=== PATIENT | male | born 1975 | race Caucasian/White ===

== ENCOUNTER 2019-08-02 10:08 | Emergency (ER) | payer BC ==
[2019-08-02 10:38] VITALS: BP 170/100
--- NOTE | 2019-08-02 11:14 | UC ---
Back Pain HPI - HPI Summary HPI Summary: right lower back pain x 5 days pain is 7 out 10 , radiating to right lower leg worse with movement, better with rest, hx of Sciatica no numbness of lower ext, no lower ext. weakness no urinary sx - History of Current Complaint Chief Complaint: UCGeneralIllness Stated Complaint: LOW BACK,RIGHT LEG PAIN Time Seen by Provider: 08/02/19 11:01 Hx Obtained From: Patient Onset/Duration: Gradual Onset, Lasting Days - 5, Still Present Timing: Constant, Lasting Days - 5 Severity Initially: Severe Severity Currently: Severe Pain Intensity: 8 Back Pain: Is Discrete @ - right lower back Character: Aching, Spasmodic Aggravating Factor(s): Movement, Walking Alleviating Factor(s): Rest, Heat Associated Signs And Symptoms: Positive: Swelling, Redness, Weakness. Negative : Fever, Numbness - Allergies/Home Medications Allergies/Adverse Reactions: Allergies Allergy/AdvReac Type Severity Reaction Status Date / Time No Known Allergies Allergy Verified 08/02/19 10:24 Home Medications: Home Medications Cyclobenzaprine TAB* [Flexeril 10 MG TAB*] 10 mg PO BID PRN #20 tab 08/02/19 [Rx ] Fexofenadine (NF) [Nicole 180 (NF)] 1 tab DAILY 08/02/19 [History Confirmed 03/13] Lisinopril TAB* [Prinivil TAB*] 10 mg PO DAILY 08/02/19 [History Confirmed 08/01] Naproxen [Naproxen 500 mg tab] 500 mg PO BID #20 tablet 08/02/19 [Rx] PMH/Surg Hx/FS Hx/Imm Hx Previously Healthy: Yes Cardiovascular History: Hypertension - Surgical History Surgical History: None - Family History Known Family History: Positive: Hypertension - Social History Alcohol Use: Rare Substance Use Type: None Smoking Status (MU): Never Smoked Tobacco Review of Systems All Other Systems Reviewed And Are Negative: Yes Is Patient Immunocompromised?: No Physical Exam Triage Information Reviewed: Yes Appearance: Pain Distress, Obese Vital Signs: Initial Vital Signs Temp 98 F 08/02/19 10:26 Pulse 99 08/02/19 10:26 Resp 16 08/02/19 10:26 BP 170/100 08/02/19 10:26 Pulse Ox 98 08/02/19 10:26 Vital Signs Reviewed: Yes Eyes: Positive: Conjunctiva Clear ENT: Positive: Normal ENT inspection, Hearing grossly normal, Pharynx normal, Pharyngeal erythema, Nasal congestion, Nasal drainage, TMs normal, TM bulging, TM dull, TM red, Tonsillar swelling Neck exam: Normal Neck: Positive: Supple, Nontender, No Lymphadenopathy Respiratory: Positive: Chest non-tender, Lungs clear, Normal breath sounds, No respiratory distress, No accessory muscle use, Respiratory distress, Accessory muscle use Cardiovascular Exam: Normal Cardiovascular: Positive: RRR, No Murmur Abdominal Exam: Normal Abdomen Description: Positive: Nontender, Soft Musculoskeletal: Positive: Other: - right lower back : no swelling, no erythema , no tenderness, good ROM Back Pain Course/Dx - Differential Dx/Diagnosis Provider Diagnosis: Sciatica Discharge ED - Sign-Out/Discharge Documenting (check all that apply): Patient Departure All imaging exams completed and their final reports reviewed: No Studies - Discharge Plan Condition: Stable Disposition: HOME Prescriptions: Cyclobenzaprine TAB* [Flexeril 10 MG TAB*] 10 mg PO BID PRN #20 tab PRN Reason: Pain - Severe Naproxen [Naproxen 500 mg tab] 500 mg PO BID #20 tablet Patient Education Materials: Sciatica (ED), Hypertension (ED) Referrals: No Primary Care Phys,NOPCP [Primary Care Provider] - 7 Days - Billing Disposition and Condition Condition: STABLE Disposition: Home
== END 2019-08-02 11:11 | disposition home or self-care (01) ==
LOC: UCCORT 10:08
DX: M54.31 Sciatica, right side (principal); I10 Essential (primary) hypertension; Z79.899 Other long term (current) drug therapy; R09.81 Nasal congestion
CPT/HCPCS: 99202; G0463